=== PATIENT | female | born 1945 | race Caucasian/White ===

== ENCOUNTER → 2016-07-09 | Outpatient (CLI) | payer MEDICARE ==
--- NOTE | 2016-07-10 08:20 | MRI ---
EXAM DESCRIPTION: Brain w/wo Contrast CLINICAL HISTORY: MULTIPLE SOLEROSIS COMPARISON: None TECHNIQUE: Multiplanar, multi sequence MR images of the head are obtained with and without IV gadolinium contrast using standard imaging protocol. FINDINGS: Severe diffuse cerebral and cerebellar cortical atrophy is seen. Severe confluent increased signal on FLAIR and T2-weighted sequences are seen in the periventricular white matter and white matter of the centrum semiovale. Flame shaped areas of decreased signal on FLAIR, increased signal on T2 and decreased signal on T1-weighted sequences are seen extending from the lateral ventricles into the periventricular white matter most prominent in the right posterior frontal lobe measuring 10 mm. There is diffuse heterogeneous increased FLAIR signal throughout the corpus callosum. There are 2 lesions of increased FLAIR and T2 signal medial to the right basal ganglia measuring 8 mm. Several areas of increased FLAIR and T2 signal are seen in the white matter of the cerebellum measuring maximum 12 mm on the right and 9 mm on the left. Heterogeneous increased FLAIR and T2 signal in the pacheco is seen. No diffusion restriction is seen. There are no abnormal areas of enhancement. The pituitary is unremarkable. Visualized paranasal sinuses are unremarkable. The visualized orbits and mastoid air cells are unremarkable. IMPRESSION: Advanced cerebral and cerebellar cortical atrophy for age. Severe white matter signal changes in the supratentorial and infratentorial brain consistent with patient's history of multiple sclerosis. No enhancing lesions are seen to suggest active demyelination. There are greater than 10 Black holes in the supratentorial and infratentorial brain. Electronically signed by: Eduardo Barillas MD 07/10/2016 8:20 AM CDT
== END | disposition home or self-care (01) ==
LOC: MRI 07:01
PROVIDERS: ATTEND Psychiatry & Neurology Neurology
DX: G35 Multiple sclerosis (principal); G56.00 Carpal tunnel syndrome, unspecified upper limb; G56.20 Lesion of ulnar nerve, unspecified upper limb; G61.81 Chronic inflammatory demyelinating polyneuritis

== ENCOUNTER → 2019-01-04 | Outpatient (CLI) | payer MEDICARE ==
--- NOTE | 2019-01-04 20:41 | MRI ---
EXAM DESCRIPTION: Brain w/wo Contrast: Magnetic Resonance Imaging. CLINICAL HISTORY: 73 years Female MULTIPLE SCLEROSIS COMPARISON: MRI scan of the brain with and without contrast 09 Jul 2016. TECHNIQUE: Multiplanar, high-field MRI, multiple conventional sequences, without and with gadolinium IV contrast. No adverse reactions. Multiple axial diffusion sequences. FINDINGS: Multiple confluent periventricular white matter lesions bilaterally involving the bilateral schroeder radiata and extending superiorly into the centrum semiovale.. The extensive this of these lesions is consistent with history of multiple sclerosis, though no lesion hemorrhage or contrast enhancement is noted. Lesion in the midline and to the right of midline in the head of the corpus callosum but no enhancement. More focal hyperintense FLAIR and T2 lesions involving the anterior and posterior basal ganglia and the anterior and posterior limbs of internal capsule. No hemorrhage or enhancement. Lesions in the basal ganglia and large chronic plaque in the right frontal centrum semiovale are stable since the prior study. Bilateral plaquesin the cerebellar hemispheres. No hemorrhage, no cerebral edema, no mass-effect. Normal contrast enhancement. Cortical atrophy in the bilateral cerebellar hemispheres. Stable since the prior study. Diffuse increased T2 and FLAIR signal in the pacheco, more inferior and superior. No abnormal contrast enhancement and no diffusion restriction. Stable since the prior study. Concordance of the diffusion and non-diffusion sequences with no evidence of acute or subacute infarction. Cortical sulci, ventricles, and other CSF spaces, and the subdural spaces are stable since the prior study. No effacement or displacement. No midline shift. No extra-axial hemorrhage. Normal contrast enhancement. Normal flow signal void in the major vessels of the [employer] [place], and the venous sinuses. IACs are symmetric bilaterally. Normal signal in the bilateral mastoid air cells. No mass effect in the bilateral Cerebellopontine angles. Normal contrast enhancement. Pituitary gland occupies most of the sella. Normal contrast enhancement. Base of the cerebellar tonsils is above the foramen magnum. Minimal mucosal thickening in the paranasal sinuses. The bony calvarium is intact. IMPRESSION: 1. Diffuse chronic multiple sclerosis plaques in the bilateral periventricular white matter, anterior corpus callosum, bilateral basal ganglia. No enhancement and no diffusion restriction. No evidence for recurrence or exacerbation of multiple sclerosis. 2. Also stable plaques in the cerebellar hemispheres, and pacheco. No diffusion restriction and no abnormal contrast enhancement. 3. Minimal chronic paranasal sinusitis. Electronically signed by: Inder Cornelius MD 01/04/2019 8:40 PM [facility]
== END | disposition home or self-care (01) ==
LOC: MRI 07:00
PROVIDERS: ATTEND Psychiatry & Neurology Neurology
DX: G35 Multiple sclerosis (principal)